=== PATIENT | female | born 1995 ===

== ENCOUNTER 2023-09-26 22:25 | Emergency (ER) | payer SELFPAY ==
[2023-09-26 22:36] VITALS: BP 117/75; PULSE 114; RESP 20; TEMP 36.9; O2SAT 99; BMI 23.5
== END 2023-09-27 03:17 | disposition left against medical advice (07) ==
LOC: HO.ED 09-27 01:49
PROVIDERS: Emergency Provider Emergency Medicine
DX: S70.311A Abrasion, right thigh, initial encounter (principal); S70.11XA Contusion of right thigh, initial encounter; V86.59XA Driver of other special all-terrain or other off-road motor vehicle injured in nontraffic accident, initial encounter; M25.472 Effusion, left ankle; Y93.89 Activity, other specified; Y92.9 Unspecified place or not applicable; Y99.9 Unspecified external cause status; Z53.21 Procedure and treatment not carried out due to patient leaving prior to being seen by health care provider
CPT/HCPCS: 99281